=== PATIENT | female | born 1985 | race Caucasian/White ===

== ENCOUNTER → 2016-07-03 | Outpatient (CLI) | payer MEDICAID ==
[~2016-07-03] MED LIST: AUGMENTIN875 MG PO; CELEXA DPS20 MG PO; MOTRIN-DPS800 MG PO; NEWMANS NIPPLE CREAM TP; NORCO 5-325 TA1 EACH PO; PEPCID20 MG PO; PRENATAL VIT1 TAB PO; TRANDATE100 MG PO; TYLENOL WITH C1 EACH PO
== END | disposition home or self-care (01) ==
LOC: RAD.S 13:30
DX: N92.0 Excessive and frequent menstruation with regular cycle (principal)

== ENCOUNTER 2016-08-07 14:38 | Emergency (ER) | payer MEDICAID ==
--- NOTE | 2016-08-13 16:10 | ER ---
ADMIT: 08/07/2016 RM/LOC: ER [facility] MR#: [id number] [id number] RUDI APPIAH [address] [facility] [place] [address] Emergency Room Report SEX: F AGE: 30 : 1985 DATE: 08/07/2016 CHIEF COMPLAINT: Headache. HISTORY OF PRESENT ILLNESS: This is a 30-year-old, who has a history of migraines since age 26 when she became with her child. She said this headache has been there about a week now. She denies any trauma to her head. Denies any confusion just says she has a headache with nausea and vomiting and rates it at 8/10. COURSE IN THE EMERGENCY ROOM: She was given a liter of fluids along with Toradol and Reglan. Did check a glucose level, which was in the 90s, and she is diabetic. She does feel a little bit better. I am discharging her home, having her rest, push fluids and follow up as needed. CLINICAL IMPRESSION: Migraine headache. ARUNA Lazaro / Efrain Albarran MD / leonardal JOB #: [id number] CC: Efrain Albarran MD, Attending Physician Joelle Chinchilla, Family Physician
== END 2016-08-07 17:00 | disposition home or self-care (01) ==
LOC: ER 14:38
DX: G43.909 Migraine, unspecified, not intractable, without status migrainosus (principal); I10 Essential (primary) hypertension; E11.9 Type 2 diabetes mellitus without complications